=== PATIENT | male | born 1985 | race Hispanic/Latino ===

== ENCOUNTER 2020-06-11 14:15 | Emergency (ER) | payer SELFPAY ==
[~2020-06-11] VITALS: Ht 167.6 cm; Wt 92.1 kg
[2020-06-11] MEDS ORDERED: ULTRAM50 MG PO (16:04)
[2020-06-11 16:11] VITALS: BP 146/101
== END 2020-06-11 16:12 | disposition home or self-care (01) ==
LOC: ER 15:19
DX: S62.325A Displaced fracture of shaft of fourth metacarpal bone, left hand, initial encounter for closed fracture (principal); M54.2 Cervicalgia; R07.89 Other chest pain; M25.532 Pain in left wrist; V47.5XXA Car driver injured in collision with fixed or stationary object in traffic accident, initial encounter; Y92.488 Other paved roadways as the place of occurrence of the external cause
CPT/HCPCS: 71045; 99284